=== PATIENT | male | born 1985 | race Caucasian/White ===

== ENCOUNTER 2019-01-05 21:52 | Emergency (ER) | payer MEDICAID ==
[2019-01-05 22:09] VITALS: BP 132/82
--- NOTE | 2019-01-05 22:30 | ED Physician Documentation ---
History of Present Illness - Stated complaint Stated Complaint: THUMB RED/SWOLLEN - Chief complaint Chief Complaint: Ext Problem - History obtained from History obtained from: Patient - Additonal information Additional information: Patient is a previously healthy, right-handed 33-year-old male presenting with left distal thumb pain, swelling, and redness. Patient denies any particular trauma or inciting incident. Over the past several days he has noticed these worsening symptoms as well as what appears to be a head of a pimple that has not yet drained. No fever or other complications or complaints. No change in sensation, strength, range of motion to left hand and fingers.No improving or worsening factors noted. Review of Systems Constitutional: denies: Fever Skin: reports: Other (Swelling and redness to left thumb) Musculoskeletal: reports: Extremity pain PD PAST MEDICAL HISTORY - Past Medical History Past Medical History: No GI: GERD - Past Surgical History Past Surgical History: No - Present Medications Home Medications: Ambulatory Orders Medication Instructions Recorded Confirmed Cephalexin [Keflex] 500 mg PO QID 7 Days capsule 01/05/19 Omeprazole 20 mg PO DAILY 01/05/19 01/05/19 Sulfamethox/Trimeth 800/160 1 each PO BID #14 tablet 01/05/19 [Bactrim Ds 800/160] - Allergies Allergies/Adverse Reactions: Allergies Allergy/AdvReac Type Severity Reaction Status Date / Time No Known Drug Allergies Allergy Verified 01/05/19 22:01 - Social History Does the pt smoke?: No Smoking Status: Never smoker Does the pt drink ETOH?: Yes PD ED PE NORMAL - Vitals Vital signs reviewed: Yes - General General: Alert and oriented X 3, No acute distress, Well developed/nourished - Cardiac Cardiac: Strong equal pulses (Cap refill brisk) - Respiratory Respiratory: No respiratory distress - Derm Derm: Warm and dry, No rash. No: Normal color (Felon left thumb with tenderness to palpation, swelling, erythemaAnd mild fluctuance) - Extremities Extremities: No deformity. No: No tenderness to palpate - Neuro Neuro: Alert and oriented X 3, No motor deficit, No sensory deficit - Psych Psych: Normal mood, Normal affect Results - Vitals Vitals: Vital Signs - 24 hr 01/05/19 21:54 Temperature 36.4 C L Heart Rate 68 Respiratory 15 Rate Blood Pressure 132/82 H O2 Saturation 97 Oxygen O2 Source Room air Procedures - Abscess I&D (location) Finger left Preparation: Alcohol Incision: Needle aspiration, Purulent drainage Other: Pt tolerated well, Dressing applied, Antibiotic prescribed PD MEDICAL DECISION MAKING - ED course Complexity details: considered differential, d/w patient ED course: Patient presenting with felon to left thumb. I&D performed with purulent drainage present and patient prescribed antibiotics. Also discussed other appropriate supportive cares including hygiene, return precautions, and close primary care follow-up.Otherwise, feel the patient is safe to discharge home and have low suspicion for other etiologies including joint infections, lymphangitis, fracture, dislocation, or other issues, but considered. Departure - Departure Disposition: Home, Self Care Clinical Impression: Joe Condition: Good Instructions: ED Abscess IandD Follow-Up: your,doctor [Other] - Within 3 Days Prescriptions: Cephalexin [Keflex] 500 mg PO QID 7 Days capsule Sulfamethox/Trimeth 800/160 [Bactrim Ds 800/160] 1 each PO BID #14 tablet Comments: Please keep wound clean and dry using running water and soap only to clean. Please protect finger with appropriate bandaging or gloves when out and about and working. Please take antibiotics as prescribed to treat infection. Follow- up with primary care physician in next 2 to 3 days and return to ED sooner if experience worsening symptoms or other concerns.
== END 2019-01-05 23:10 | disposition home or self-care (01) ==
LOC: ED 21:52
DX: L03.012 Cellulitis of left finger (principal)
CPT/HCPCS: 10160; 26011; 99283